=== PATIENT | male | born 1970 | race Caucasian/White ===

== ENCOUNTER 2021-11-05 09:47 | Emergency (ER) | payer BC ==
[2021-11-05 12:09] LABS: HEMOGLOBIN 14.5 gm/dl (14.0-17.5); RED BLOOD COUNT 4.48 M/UL (4.20-5.50); WHITE BLOOD COUNT 8.9 K/UL (4.5-11.0)
[2021-11-05 12:33] LABS: BUN/CREATININE RATIO 15 (0-10)
== END 2021-11-05 15:08 | disposition home or self-care (01) ==
LOC: ER1 09:47
PROVIDERS: Emergency Medicine
DX: N20.1 Calculus of ureter (principal); Z87.442 Personal history of urinary calculi
CPT/HCPCS: 80053; 81001; 83690; 85025; 99284; Q9967